=== PATIENT | male | born 1980 | race Caucasian/White ===

== ENCOUNTER → 2020-02-26 14:49 | Outpatient (BNVA) | payer BC, SELFPAY | PROVIDERS: PCP Family Medicine; Visit Provider Family Medicine | DX: I10 Essential (primary) hypertension (principal); K21.9 Gastro-esophageal reflux disease without esophagitis; Z13.220 Encounter for screening for lipoid disorders; Z13.6 Encounter for screening for cardiovascular disorders; Z13.1 Encounter for screening for diabetes mellitus; Z83.3 Family history of diabetes mellitus; R35.0 Frequency of micturition; Z86.39 Personal history of other endocrine, nutritional and metabolic disease | CPT/HCPCS: 80053; 80061; 83036 ==

== ENCOUNTER → 2020-12-26 13:24 | Outpatient (BNVA) | payer BC, SELFPAY | PROVIDERS: PCP Family Medicine; Visit Provider Family Medicine | DX: I10 Essential (primary) hypertension (principal); E04.9 Nontoxic goiter, unspecified; E78.00 Pure hypercholesterolemia, unspecified; Z13.1 Encounter for screening for diabetes mellitus; Z13.220 Encounter for screening for lipoid disorders; Z13.6 Encounter for screening for cardiovascular disorders | CPT/HCPCS: 80053; 80061; 83516; 84439; 84443; 84481; 86376 ==

== ENCOUNTER → 2021-09-09 12:39 | Outpatient (BNVA) | payer BC, SELFPAY | PROVIDERS: PCP Family Medicine; Visit Provider Emergency Medicine | DX: R06.02 Shortness of breath (principal) | CPT/HCPCS: 71046 ==

== ENCOUNTER → 2022-02-10 09:23 | Outpatient (BNVA) | payer BC, SELFPAY | PROVIDERS: PCP Family Medicine; Visit Provider Family Medicine | DX: I10 Essential (primary) hypertension (principal); K21.9 Gastro-esophageal reflux disease without esophagitis; F41.1 Generalized anxiety disorder; E78.00 Pure hypercholesterolemia, unspecified; E04.9 Nontoxic goiter, unspecified; Z13.1 Encounter for screening for diabetes mellitus; K21.00 Gastro-esophageal reflux disease with esophagitis, without bleeding | CPT/HCPCS: 80053; 80061; 84439; 84443; 84481 ==

== ENCOUNTER 2022-03-04 12:31 | Outpatient (CLI) | payer BC, SELFPAY ==
--- NOTE | 2022-03-04 13:00 | US_ITS ---
WS: [id number] THYROID ULTRASOUND HISTORY: E04.9 - Nontoxic goiter, unspecified COMPARISON: None available. Right lobe: 1.5 cm x 1.3 cm x 4.8 cm (w x ap x l). Volume: 5.0 cm3. Normal size gland. Very hypoechoic nodule in the mid RIGHT gland measures 12 x 9 x 11 mm. No hyperech oic foci. Mild increased vascularity. No additional nodules. Left lobe: 1.8 cm x 1.2 cm x 4.3 cm (w x ap x l). Volume: 4.7 cm3. Normal size and echotexture. No significant or dominant nodules are present. Isthmus: 0.2 cm. Palpable area near the RIGHT clavicle is ovoid and homogeneous and probably represents a small lipoma . Soft tissue mass measures 2.2 x 2.1 x 0.9 cm. US/US thyroid [id number] IMPRESSION: 1. Very hypoechoic nodule in the mid RIGHT thyroid. Recommend 6-12 month thyro id ultrasound follow-up. Although this nodule small liver are some concerning f eatures. 2. Palpable nodule near the clavicle is most likely a small lipoma.
== END 2022-03-04 12:32 | disposition home or self-care (01) ==
PROVIDERS: PCP Family Medicine; Visit Provider Family Medicine
DX: E04.9 Nontoxic goiter, unspecified (principal)
CPT/HCPCS: 76536

== ENCOUNTER → 2022-04-21 10:23 | Outpatient (BNVA) | payer OTHER, BC, SELFPAY | PROVIDERS: PCP Family Medicine; Visit Provider Family Medicine | DX: R07.81 Pleurodynia (principal); M54.50 Low back pain, unspecified; S22.43XA Multiple fractures of ribs, bilateral, initial encounter for closed fracture; V49.9XXA Car occupant (driver) (passenger) injured in unspecified traffic accident, initial encounter | CPT/HCPCS: 71110; 72100 ==

== ENCOUNTER → 2022-08-30 15:53 | Outpatient (BNVA) | payer BC, SELFPAY | PROVIDERS: PCP Family Medicine; Visit Provider Emergency Medicine | DX: R05.3 Chronic cough (principal); R06.02 Shortness of breath | CPT/HCPCS: 71045; 71046 ==

== ENCOUNTER → 2024-02-02 15:28 | Outpatient (BNVA) | payer BC, SELFPAY | PROVIDERS: PCP Family Medicine; Visit Provider Family Medicine | DX: I10 Essential (primary) hypertension (principal); E03.9 Hypothyroidism, unspecified; E04.9 Nontoxic goiter, unspecified; E78.00 Pure hypercholesterolemia, unspecified | CPT/HCPCS: 80053; 80061; 84439; 84443; 84481 ==